=== PATIENT | female | born 1970 | race Caucasian/White ===

== ENCOUNTER 2018-05-11 21:39 | Emergency (ER) | payer SELFPAY ==
--- NOTE | 2018-05-11 22:07 | ED Physician Documentation ---
Low Back Pain - HISTORIAN Historian: patient - HPI Chief Complaint: Low Back Pain/ Injury History: history of chronic pain: Onset: days ago Duration: continues in ED Further Comments: yes (47 year old female patient presents with complaint of her chronic back pain. Patient reports she is out of her medications. Old charts reviewed. Patient with history of severe ETOH abuse. Moved to [place], [place] and is not back in [place], saw Dr Murillo on 04/05/17 - was prescribed gabapentin and diclofenac. States she is out of meds and "my medicaid isn't working". States she cannot refill her medications. Did not see ortho for follow up.) - ROS CONST: no problems CVS/RESP: none EYES/ENT: none MS/SKIN/LYMPH: other (healed burn on left lateral calf from "heating pad".) Neuro/Psych: none - PAST HX Past History: back pain (chronic) Allergies/Adverse Reactions: Allergies Allergy/AdvReac Type Severity Reaction Status Date / Time haloperidol [From Haldol] Allergy Verified 05/11/18 22:23 - SOCIAL HX Smoking History: cigarettes Alcohol Use: other (history of abuse) - FAMILY HX Family History: denies: none - VITAL SIGNS Vital Signs: Vital Signs Temp Pulse Resp BP Pulse Ox 120/48 05/17/14 11:32 - REVIEWED ASSESSMENTS Nursing Assessment Reviewed: Yes Vitals Reviewed: Yes Progress - Progress Progress: Reviewed medication prescriptions with patient, coupons from [facility] found and card provided. Patient crying with complaint of "no one understands my pain". Reviewed recent filled medications. Gabapentin prescribed on 03/28/18 by Bharati Moreno and 04/05/[address] Murillo. Will treat pain while in ER with stadol and toradol. Patient has refills on gabapentin and diclofenac. ED Results Lab/Radiology - Orders Orders: ED Orders Category Date Time Status Butorphanol Tartrate [Stadol] Med 05/11/18 22:11 Discontinued 1 mg IM NOW ONE Ketorolac Tromethamine [Toradol] Med 05/11/18 22:07 Discontinued 60 mg IM NOW ONE Orphenadrine Citrate [Norflex] Med 05/11/18 22:07 Discontinued 60 mg IM NOW ONE Low Back Pain/Injury - Physical Exam General Appearance: anxious EENT: eye inspection normal, HIRO Resp/CVS: chest non-tender, breath sounds nml, heart sounds nml, no resp. distress, lungs clear, reg. rate & rhythm Abdomen: non-tender, no organomegaly, no pulsatile mass Back: painless ROM, other (complaint of lumbar pain - able sit up and lie back with no grimacing. ) Neuro/Psych: oriented x3, motor nml, sensation nml, bilat. doriflexion nml, reflexes nml, mood/affect nml Skin: normal color, warm/dry, NR, INT, PAL, DR Extremities: non-tender, normal range of motion, no evidence of injury, no edema, J, COB SAWYER Discharge Clincal Impression: Drug-seeking behavior Chronic back pain Qualifiers: Back pain location: low back pain Back pain laterality: bilateral Sciatica presence: without sciatica Qualified Code(s): M54.5 - Low back pain Referrals: Pete Murillo MD [Primary Care Provider] - 2 Days Additional Instructions: Refill your prescriptions tomorrow using the [facility] coupon provided. Start a daily omeprazole (over the counter) while you are on the diclofenac. Make a follow up appointment with Dr Murillo. Condition: Stable Disposition: 01 HOME, SELF-CARE Decision to Admit: NO Decision Time: 22:23
[2018-05-11] MEDS: BUTORPHANOL TARTRATE 1 MG/ML VIAL IM ONE (22:15)
[2018-05-11] MEDS: KETOROLAC TROMETHAMINE 60 MG/2 ML VIAL IM ONE (22:15)
[2018-05-11] MEDS: ORPHENADRINE CITRATE 60 MG/2 ML ML IM ONE (22:29)
[2018-05-11 22:58] VITALS: BP 122/76
== END 2018-05-11 22:40 | disposition home or self-care (01) ==
LOC: ED 21:39
DX: Z76.5 Malingerer [conscious simulation] (principal); M54.5 Low back pain; Z72.0 Tobacco use
CPT/HCPCS: 96372; 99283; J1885

== ENCOUNTER 2019-01-27 12:17 | Emergency (ER) | payer OTHER ==
[2019-01-27] MEDS ORDERED: FOLIC ACID 5 MG/1 ML ONE (13:00)
[2019-01-27] MEDS ORDERED: 0.9 % SODIUM CHLORIDE 1,000 ML IV ONE (13:01)
[2019-01-27] MEDS ORDERED: MAGNESIUM SULFATE 1 GM/2ML VIAL ONE (13:01)
[2019-01-27] MEDS ORDERED: THIAMINE HCL 200 MG/2 ML VIAL ONE (13:01)
[2019-01-27] MEDS ORDERED: MULTIVIT INFUSN,ADULT 1,VIT K 10 ML VIAL IV ONE (13:03)
[2019-01-27] MEDS ORDERED: MAGNESIUM SULFATE IV ONE (13:06)
[2019-01-27] MEDS ORDERED: SODIUM CHLORIDE 0.9% IV ONE (13:06)
--- NOTE | 2019-01-27 13:06 | ED Physician Documentation ---
Psychological Disorders - HISTORIAN Historian: patient, parent (mom) - [facility] Chief Complaint: General Adult (Alcohol intoxication) Additional Information: 48 year old female presents with mom for intoxication. Patient has a known history of chronic alcohol abuse. She has had a period of sobriety in which she was sober for 2 years. Over the last couple of months she has moved back with mom after a bad relationship that ended 2 months and has started drinking again. She was diagnosed with breast cancer and had bilateral mastectomies and has been getting radiation; she has not done her last 3 treatments. Mom states that patient has been to the [facility] several times over the last couple of weeks for alcohol abuse and has been sent home. Onset: days ago Duration: constant Intent: other (has not said anything about suicide) Severity: moderate Situational Problems: Yes Related To: other (recent separation) - Associated Symptoms Symptoms: frustrated, agitated - ROS CONST: none NEURO/PSYCH: none EYES/ENT: none CVS/RESP: none GI/: denies: nausea, vomiting MS/SKIN/LYMPH: denies: rash - PAST HX Psychiatric problems: bipolar disorder, depression DVT/PE Risk Factors: cancer (breast) Lung, Cardiac, DM: chemo/rad tx (radiation) Surgical History: other (bilateral mastectomy) Immunizations: UTD Allergies/Adverse Reactions: Allergies Allergy/AdvReac Type Severity Reaction Status Date / Time haloperidol [From Haldol] Allergy Verified 05/31/18 11:59 Home Medications: Ambulatory Orders Medication Instructions Recorded NK 05/31/18 - Social HX Smoking History: greater than 1 pack/day Marital Status: single Drug Use: marijuana - Family HX Family HX: mental illness - VITAL SIGNS Vital Signs: Vital Signs Temp Pulse Resp BP Pulse Ox 98.2 F 74 16 122/68 97 01/27/19 16:18 01/27/19 16:18 01/27/19 16:18 01/27/19 16:18 01/27/19 16:18 - REVIEWED ASSESSMENTS Nursing Assessment Reviewed: Yes Vitals Reviewed: Yes Progress - Progress Progress: 14:00 patient sleeping; fluids infusing 16:00 patient is alert and oriented; feeling much better; she is very apologetic; she is answering all questions appropriately- personal and otherwise; Had conversation with patient; she denies any SI/HI. She states "If I wanted to I wouldn't have gotten treatment for my breast cancer". "I don't want to ". ED Results Lab/Radiology - Lab Results Lab Results: Lab Results 01/27/19 01/27/19 13:10 13:10 WBC 4.70 K/ul K/ul (4.00-12.00) RBC 4.81 M/ul M/ul (3.90-5.20) Hgb 14.8 g/dL g/dL (11.5-16.0) Hct 43.5 % % (34.5-46.5) MCV 90.0 fl fl (80.0-100.0) MCH 30.8 pg pg (28.0-34.0) MCHC 34.1 g/dL g/dL (30.0-36.0) RDW 12.4 % % (11.3-14.3) Plt Count 374 K/mm3 K/mm3 (130-400) Neut % (Auto) 55.1 % % (39.0-79.0) Lymph % (Auto) 33.8 % % (16.0-50.0) [place] % (Auto) 8.8 % % (0.0-11.0) Eos % (Auto) 1.3 % % (0.0-6.8) Baso % (Auto) 1.0 % % (0.0-1.5) Neut # (Auto) 2.6 # k/uL # k/uL (1.4-7.7) Lymph # (Auto) 1.6 # k/uL # k/uL (0.6-4.0) [place] # (Auto) 0.4 # k/uL # k/uL (0.0-0.9) Eos # (Auto) 0.1 # k/uL # k/uL (0.0-0.6) Baso # (Auto) 0.1 # k/uL # k/uL (0.0-0.5) Sodium 147 mmol/L H mmol/L (137-145) Potassium 3.9 mmol/L mmol/L (3.5-5.1) Chloride 105 mmol/L mmol/L (98-107) Carbon Dioxide 26 mmol/L mmol/L (22-30) Anion Gap 19.9 BUN 8 mg/dL mg/dL (7-17) Creatinine 0.58 mg/dL mg/dL (0.52-1.04) Est GFR ( Amer) > 60 (60 - ) Est GFR (Non-Af Amer) > 60 (60 - ) Glucose 94 mg/dL mg/dL (74-106) Calcium 9.1 mg/dL mg/dL (8.4-10.2) Total Bilirubin 0.4 mg/dL mg/dL (0.2-1.3) AST 97 U/L H U/L (15-46) ALT 23 U/L U/L (4-35) Alkaline Phosphatase 99 U/L U/L (38-126) Total Protein 8.7 g/dL H g/dL (6.3-8.2) Albumin 4.9 g/dL g/dL (3.5-5.0) Ethyl Alcohol 368.0 mg/dL H mg/dL (0.0-10.0) - Orders Orders: ED Orders Category Date Time Status Continuous EKG monitoring Q30M Care 01/27/19 13:06 Active Continuous Pulse Oximetry Q30M Care 01/27/19 13:[address] IV Lock 1T Care 01/27/19 13:06 Active ALCOHOL MEDICAL USE ONLY Stat Lab 01/27/19 13:10 Completed CBC/PLATELET/DIFF Stat Lab 01/27/19 13:10 Completed CMP Stat Lab 01/27/19 13:10 Completed 0.9 % Sodium Chloride [Normal Saline] 1,000 ml Med 01/27/19 13:01 Discontinued IV .STK-MED Folic Acid [Folvite] Med 01/27/19 13:00 Discontinued 5 mg .ROUTE .STK-MED ONE Magnesium Sulfate Med 01/27/19 13:01 Discontinued 2 gm .ROUTE .STK-MED ONE Magnesium Sulfate 1 gm Med 01/27/19 13:06 Discontinued 0.9 % Sodium Chloride [Normal Saline] 100 ml IV NOW Multivit Infusn,Adult 1,Vit K [M.v.i. Adult] Med 01/27/19 13:03 Discontinued 10 ml IV .STK-MED ONE Thiamine HCl [Vitamin B-1] Med 01/27/19 13:01 Discontinued 200 mg .ROUTE .STK-MED ONE Thiamine HCl [Vitamin B-1] 100 mg Med 01/27/19 13:07 Discontinued Multivit Infusn,Adult 1,Vit K [M.v.i. Adult] 10 ml Folic Acid [Folvite] 5 mg 0.9 % Sodium Chloride [Normal Saline] 1,000 ml IV NOW Psych Physical Exam - Physical Exam General Appearance: alert, mild distress ENT: nml ENT inspection, pharynx nml Eyes: PERRL Mental Status: hostile (redirects easily) Orientation: uncooperative (but will redirect with patience and praise), disoriented Cranial Nerves: CN's intact as tested Sensory, Motor: nml motor response Neck/Back: normal inspection Respiratory: breath sounds normal CVS: heart sounds normal Abdomen: non-tender, nml bowel sounds Skin: warm/dry, normal color Extremities: non-tender, normal range of motion Discharge Clincal Impression: Alcohol abuse Referrals: Pete Murillo MD [Primary Care Provider] - 2 Days Additional Instructions: Increase fluid intake High protein STOP ALCOHOL Condition: Good Disposition: 01 HOME, SELF-CARE Decision to Admit: NO Decision Time: 16:22
[2019-01-27] MEDS ORDERED: THIAMINE HCL 100 MG, MULTIVIT INFUSN,ADULT 1,VIT K 10 ML, FOLIC ACID 5 MG in 0.9 % SODI... IV ONE (13:07)
[2019-01-27 13:11] LABS: NEUTROPHILS # 2.6 # k/uL (1.4-7.7)
[2019-01-27 13:22] LABS: eGFR (Non-African) > 60
[2019-01-27 16:20] VITALS: BP 122/68
== END 2019-01-27 16:12 | disposition home or self-care (01) ==
LOC: ED 12:17
DX: F10.129 Alcohol abuse with intoxication, unspecified (principal); Y90.9 Presence of alcohol in blood, level not specified
CPT/HCPCS: 80053; 80320; 85025; 96360; 96361; 99282; 99284; J3411; J3475; J3490; G0480; J7030; S1016